=== PATIENT | female | born 1940 | race Caucasian/White ===

== ENCOUNTER → 2016-07-02 | Outpatient (POV) | LOC: OUTPT 00:01 | PROVIDERS: ATTEND Otolaryngology | DX: H69.90 Unspecified Eustachian tube disorder, unspecified ear (principal); H91.90 Unspecified hearing loss, unspecified ear | CPT/HCPCS: 92557; 92567 ==

== ENCOUNTER 2017-12-30 08:48 | Day surgery (SDC) ==
[2017-12-30 09:28] VITALS: TEMP 97.8
[2017-12-30] MEDS ORDERED: DIPRIVAN 20 ML VIAL IVP ONE (10:27)
[2017-12-30] MEDS ORDERED: SUBLIMAZE ONE (10:27)
[2017-12-30] MEDS ORDERED: ROBINOL ONE (10:27)
--- NOTE | 2017-12-31 10:25 | OP ---
INDICATIONS FOR PROCEDURE: 77-year-old female presents for endoscopy and colonoscopy. She was found to have iron deficiency anemia. She also has intermittent dysphagia. MEDICATIONS: SEE ANESTHESIA NOTES. PROCEDURE: 1. ENDOSCOPY, GASTRIC BIOPSY, TAIWAN[place] DILATATION. 2. COLONOSCOPY, SNARE POLYPECTOMY. REPORT: The risks, benefits, alternatives and limitations were discussed in detail with the patient. Informed consent was obtained. After adequate sedation was achieved, the video endoscope was introduced in the posterior pharynx and esophagus under direct vision and easily advanced down to the second portion of the duodenum. I then slowly withdrew. The duodenal mucosa appeared unremarkable as did the duodenal bulb. The antrum and body were relatively unremarkable. In the body there was a small 4 mm polyp I removed this with cold biopsy forceps. It appeared quite benign. On retroflex and forward views, there was noted to be a large hiatal hernia. The diaphragmatic hiatus was roughly at 38 cm with GE junction at 32 cm. She previously had [place] erosions but none were present on this examination. The mucosa was unremarkable in the cardia, fundus and hiatus. I could see on retroflex view a stricture right at the GE junction. I withdrew the scope back in the esophagus. The esophagus appeared unremarkable other than slightl tortuosity and mild stricturing at the GE junction. I biopsied the stricture for histologic review. I then advanced a guidewire into the gastric lumen. I withdrew the scope. Over the guidewire, I easily advanced the 54 Hungarian [place] dilator. The patient tolerated the procedure well with stable vital signs and pulse oximetry throughout. The patient's bed was turned. Digital rectal exam revealed good tone, no mass. The colonoscope was introduced into the rectum and was advanced under direct visual guidance to the cecum. The cecum was identified by the appendiceal orifice and IC valve. I then slowly withdrew the scope in a circumferential manner examining the mucosa quite carefully. I looked on the proximal and distal side of folds and flexures as best as possible. I was able to retroflex the scope in the right colon and left colon to increase visualization. In the mid sigmoid area there was a small diminutive 4 mm polyp, I destroyed this using a snare. In the distal sigmoid colon roughly at 18 cm there was a pedunculated 1 cm polyp. I removed this by snare technique. No other abnormalities were noted including on retroflex view of the anal canal. The prep was good. The withdrawal time was 12 minutes and 8 seconds. The patient tolerated the procedure well with stable vital signs and pulse oximetry throughout. IMPRESSION: 1. 6 CM HIATAL HERNIA 2. BENIGN APPEARING DIMINUTIVE GASTRIC POLYP 3. DISTAL ESOPHAGEAL STRICTURE DILATED ABOVE 4. TWO (2) COLONIC POLYPS SUCCESSFULLY REMOVED RECOMMENDATIONS: 1. Strict reflux precautions. 2. Continue Iron supplementation. 3. Await gastric biopsy results. 4. Await colon polyp pathology results. If everything is benign as expected from polyps, I recommend repeat colonoscopy examination again in 3 years, sooner if signs or symptoms would indicate otherwise. 5. Will see her back in the office as needed. CC: DR. KATHY UNDERWOOD
[2018-01-01 10:36] VITALS: BP 118/67
== END 2017-12-30 11:50 | disposition home or self-care (01) ==
LOC: SURG 08:48
PROVIDERS: ATTEND Internal Medicine Gastroenterology
DX: D50.9 Iron deficiency anemia, unspecified (principal); K44.9 Diaphragmatic hernia without obstruction or gangrene; D12.5 Benign neoplasm of sigmoid colon; K31.7 Polyp of stomach and duodenum

== ENCOUNTER 2019-01-14 10:36 | Outpatient (CLI) ==
--- NOTE | 2019-01-14 12:05 | DI ---
EXAM: Two views of the left femur. History: Left leg pain. Findings: No acute fracture or dislocation. Moderate narrowing of the left hip joint with marginal sclerosis and osteophyte formation. No suspicious lytic or blastic osseous lesions. Impression: 1. No acute osseous abnormality. 2. 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
== END 2019-01-14 10:37 | disposition home or self-care (01) ==
LOC: RAD 10:36
PROVIDERS: ATTEND Family Medicine
DX: M79.652 Pain in left thigh (principal)